=== PATIENT | female | born 1995 | race Caucasian/White ===

== ENCOUNTER 2016-12-27 09:56 | Outpatient (CLI) | payer OTHER ==
--- NOTE | 2016-12-27 10:43 | DIAGNOSTIC IMAGING REPORT ---
PROCEDURE: US OB 1ST TRIMESTER W/TRANSVAG INDICATION: Uncertain size and dates. TECHNIQUE: Phipps scale, color, and spectral Doppler transabdominal and endovaginal sonographic images of the first trimester gravid uterus were obtained. COMPARISON: None. FINDINGS: TRANSABDOMINAL SCANS: Single intrauterine gestational sac with yolk sac and pole. TRANSVAGINAL SCANS: pole measures 11.4 mm, 7 weeks 2 days. Heart rate 143 bpm. ZACARIAS 08/13/2017. There is a 1.8 cm right ovarian corpus luteum cyst. IMPRESSION: 1. Single live intra uterine 7 weeks 2 days 2. ZACARIAS 08/13/2017.
== END 2016-12-27 23:00 ==
LOC: US SRH 09:56
DX: Z34.91 Encounter for supervision of normal pregnancy, unspecified, first trimester (principal); Z3A.01 Less than 8 weeks gestation of pregnancy